=== PATIENT | female | born 1970 | race Caucasian/White ===

== ENCOUNTER → 2017-01-04 | Outpatient (CLI) | payer OTHER ==
[~2017-01-04] MED LIST: CIPRO 500MG TA500 MG PO; TENORMIN100 MG PO; TIROSINT100 MC1 PO; TYLENOL 500MG500 MG PO; ZOLOFT 100MG100 MG PO
== END ==
LOC: COL.RAD 10:49
DX: N20.0 Calculus of kidney (principal); Z90.5 Acquired absence of kidney; Z96.0 Presence of urogenital implants

== ENCOUNTER 2017-01-05 14:49 | Day surgery (SDC) | payer OTHER ==
[~2017-01-05] VITALS: Ht 157.5 cm; Wt 93.4 kg
[2017-01-05 16:02] VITALS: BP 154/95; PULSE 49; TEMP 97.7
[2017-01-05] MEDS ORDERED: CIPRO 500MG TA500 MG PO (17:16)
[2017-01-05] MEDS ORDERED: TYLENOL 500MG500 MG PO (17:17)
[2017-01-05] MEDS ORDERED: ZOLOFT 100MG100 MG PO (17:19)
[2017-01-05] MEDS ORDERED: TENORMIN100 MG PO (17:19)
[2017-01-05] MEDS ORDERED: TIROSINT100 MC1 PO (17:20)
[2017-01-05 18:52] VITALS: BP 132/84; PULSE 68; TEMP 97.5
[2017-01-05 19:07] VITALS: BP 132/86; PULSE 63
[2017-01-05 19:22] VITALS: BP 138/93; PULSE 65
[2017-01-05 19:37] VITALS: BP 132/81; PULSE 67
[2017-01-05 23:39] VITALS: BP 129/86; PULSE 68; TEMP 98.1
== END 2017-01-05 19:50 | disposition home or self-care (01) ==
LOC: SDCO 14:49
DX: N20.1 Calculus of ureter (principal); N13.30 Unspecified hydronephrosis; I10 Essential (primary) hypertension; E03.9 Hypothyroidism, unspecified; G43.909 Migraine, unspecified, not intractable, without status migrainosus; Z90.5 Acquired absence of kidney; Z83.3 Family history of diabetes mellitus; Z80.9 Family history of malignant neoplasm, unspecified; Z82.49 Family history of ischemic heart disease and other diseases of the circulatory system; Z87.442 Personal history of urinary calculi; Z98.1 Arthrodesis status; Z96.0 Presence of urogenital implants
CPT/HCPCS: C1769; J0690; J1100; J1885; J2270; J2405; J2704; J3010; J7120

== ENCOUNTER 2018-03-17 10:10 | Observation (INO) | payer OTHER ==
[2018-03-17] VITALS (7 sets, daily range): BP systolic 119–159; BP diastolic 70–109; PULSE 63–74; TEMP 98.2–98.4
[~2018-03-17] VITALS: Ht 157.5 cm; Wt 90.9 kg
[2018-03-17 10:22] LABS: COLLECTION METHOD CLEAN CATCH
[2018-03-17 10:33] LABS: MUCOUS Present /lpf; PH 6 (5-8); SQUAMOUS EPITHELIAL 0-2 /hpf; URINE APPEARANCE Cloudy; URINE BACTERIA Rare /hpf; URINE BILIRUBIN Negative (NEGATIVE); URINE BLOOD 3+ (NEGATIVE); URINE COLOR Yellow; URINE GLUCOSE Negative (NEGATIVE); URINE KETONE Negative (NEGATIVE); URINE LEUKOCYTE ESTERASE 3+ (NEGATIVE); URINE NITRATE Negative (NEGATIVE); URINE PROTEIN(semi-quant) 2+ (NEGATIVE); URINE RBC >50 /hpf; URINE UROBILINOGEN Negative (NEGATIVE)
[2018-03-17] MEDS ORDERED: K-TAB10 PO (10:34)
[2018-03-17] MEDS ORDERED: ZYLOPRIM 300MG300 MG PO (10:34)
[2018-03-17 11:00] LABS: BASO % 0.4 % (0.0-2.0); EOS # 0.2 (0.0-0.7); EOS % 3.1 % (0-4.0); GRAN # 5.4 (1.4-6.5); GRAN % 78.5 % (42.2-75.2); HEMATOCRIT 40.2 % (37.0-47.0); HEMOGLOBIN 13.1 g/dl (12.5-16.0); LYMPH # 0.7 (1.2-3.4); LYMPH % 10.1 % (20.0-51.0); MEAN CELL VOLUME 96 fl (80.0-100.0); MEAN CORPUSCULAR HEMOGLOBIN 31 pg (27.0-31.0); MEAN CORPUSCULAR HGB CONC 33 g/dl (33.0-37.0); MEAN PLATELET VOLUME 9.7 fl (7.4-10.4); MONO # 0.5 (0.1-0.6); MONO % 7.2 % (1.7-9.3); PLATELET COUNT 177 K/mm3 (130-400); RED BLOOD COUNT 4.18 M/mm3 (4.10-5.30)
[2018-03-17 11:11] LABS: CALCIUM 8.2 mg/dL (8.4-10.2); CREATININE, serum 1.01 mg/dL (0.52-1.25); POTASSIUM 3.6 mmol/L (3.4-5.0)
== END 2018-03-17 19:00 | disposition home or self-care (01) ==
LOC: COL.ER 10:10 → JCC 12:33 → SURG 13:22
PROVIDERS: Emergency Medicine
DX: N13.2 Hydronephrosis with renal and ureteral calculous obstruction (principal); Q60.0 Renal agenesis, unilateral; N39.0 Urinary tract infection, site not specified; I10 Essential (primary) hypertension; Q62.5 Duplication of ureter; G43.909 Migraine, unspecified, not intractable, without status migrainosus; Z90.5 Acquired absence of kidney; Z83.3 Family history of diabetes mellitus; Z82.49 Family history of ischemic heart disease and other diseases of the circulatory system
CPT/HCPCS: C1769; C2617; G0378; J0360; J0690; J0696; J1100; J2405; J2704; J3010; J7030; Q9967

== ENCOUNTER 2018-03-21 12:30 | Day surgery (SDC) | payer OTHER ==
[~2018-03-21] VITALS: Ht 157.5 cm; Wt 98.3 kg
[~2018-03-21 12:30] MED LIST changes: +K-TAB10 PO; +ZYLOPRIM 300MG300 MG PO
[2018-03-21 13:35] VITALS: BP 147/101; PULSE 54; TEMP 98.2
[2018-03-21] MEDS ORDERED: CEPHALEXIN500 M1 PO (13:42)
[2018-03-21 17:36] VITALS: BP 139/95; PULSE 75; TEMP 97.6
[2018-03-21 17:50] VITALS: BP 140/73; PULSE 66
[2018-03-21 18:14] VITALS: BP 139/95; PULSE 73; TEMP 97.2
== END 2018-03-21 18:20 | disposition home or self-care (01) ==
LOC: SDCO 12:30
DX: N20.2 Calculus of kidney with calculus of ureter (principal); I10 Essential (primary) hypertension; M19.90 Unspecified osteoarthritis, unspecified site; G43.909 Migraine, unspecified, not intractable, without status migrainosus; Z90.5 Acquired absence of kidney; Z83.3 Family history of diabetes mellitus; Z80.9 Family history of malignant neoplasm, unspecified; Z82.49 Family history of ischemic heart disease and other diseases of the circulatory system
CPT/HCPCS: C1769; J0690; J1100; J1940; J2405; J2704; J3010; J7120